=== PATIENT | male | born 1990 ===

== ENCOUNTER 2017-10-18 04:10 | Emergency (ER) | payer SELFPAY ==
[2017-10-18 05:03] VITALS: BMI 24.7
[2017-10-18 05:08] VITALS: BP 154/84; PULSE 92; RESP 16; TEMP 98.1; O2SAT 97
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
== END 2017-10-18 07:12 | disposition home or self-care (01) ==
LOC: H.ER 04:10
DX: S00.03XA Contusion of scalp, initial encounter (principal); Y04.2XXA Assault by strike against or bumped into by another person, initial encounter